=== PATIENT | female | born 1970 | race Caucasian/White ===

== ENCOUNTER → 2019-06-03 07:34 | Outpatient (CLI) | payer BC ==
[2016-04-26 12:39] VITALS: BMI 47.7
[~2019-06-03 07:34] MED LIST: MECLIZINE HCL25 MG PO; OMEPRAZOLE20 M1 PO; PERCOCET 5-3251 TAB PO; POTASSIUM99 M1 PO; THEREMS-M1 TAB PO; ZEBETA5 MG PO
== END | disposition home or self-care (01) ==
LOC: D.MRI 07:34
PROVIDERS: ATTEND Nurse Practitioner Family
DX: M25.561 Pain in right knee (principal)

== ENCOUNTER 2019-06-12 08:51 | Day surgery (SDC) | payer BC ==
[2019-06-11 11:17] LABS: HEMATOCRIT 39.8 % (36.0-48.0); HEMOGLOBIN 13.3 g/dL (12-16); MCH 31.4 pg (26.0-34.0); MCHC 33.4 g/dL (31.0-37.0); MCV 94.1 fL (80.0-100.0); MEAN PLATELET VOLUME 10.1 fL (7.4-10.4); RBC 4.23 10x6/uL (4.00-5.40); RDW 12.8 % (11.5-14.5); WBC 6.2 10x3/uL (4.8-10.8)
[~2019-06-12] VITALS: Ht 157.5 cm; Wt 118.2 kg
[~2019-06-12 08:51] MED LIST changes: -MECLIZINE HCL25 MG PO; -PERCOCET 5-3251 TAB PO
[2019-06-12 09:30] VITALS: BP 118/80; BMI 47.7
[2019-06-12] MEDS ORDERED: PERCOCET 5-3251 TAB PO (14:20)
--- NOTE | 2019-06-12 16:05 | OP ---
PATIENT NAME: CORDELL ANDREW MEDICAL RECORD: [id number] :70 LOCATION:[facility] ADMISSION DATE: SURGEON: HAIR COLVIN DO DATE OF OPERATION: 06/12/2019 PROCEDURE PERFORMED: Right knee arthroscopy, partial medial and partial lateral meniscectomies. PREOPERATIVE DIAGNOSES: Right knee medial and lateral meniscal tears and anterior cruciate ligament rupture. POSTOPERATIVE DIAGNOSES: Right knee medial and lateral meniscal tears and anterior cruciate ligament rupture. INDICATIONS: Ms. Andrew is a 48-year-old female who fell and twisted her leg and had an MRI, which showed ACL tear and medial and lateral meniscal tears. She is 5 feet 2 inches and 260 pounds. I informed her due to her BMI and the rigors of an ACL reconstruction, I do not feel that she would do well with an ACL reconstruction and that we would trim out the meniscal tears and then we would rehab the knee and she could wear a brace. She was okay with that and she is aware that she may need a total knee as she was told she had arthritis in her 20s, she says. I warned her of all those risks including infection, bleeding, damage to nerves and vessels, need for further surgery, chronic instability of the knee, and blood clots and even and she signed a consent. SURGEON: Hair Colvin DO DESCRIPTION OF PROCEDURE: The patient was taken to the operative suite, laid in supine position, given general anesthetic and given 3 grams of Ancef preoperatively. The right lower extremity was then prepped and draped in sterile fashion. Timeout was performed. Everyone was in agreeance with the correct side, site, patient and procedure. The patient had been sedated and LMA placed. The incision began over the lateral portal. The trocar was then entered into the knee and then the suprapatellar pouch was inspected. No loose body was seen in the lateral gutter or medial gutter. The medial portal was then established with an 18-guage spinal needle and 11-blade scalpel. I then probed the medial meniscus. She had a horizontal tear in the posterior meniscus, trimmed this out with a biter and a shaver back to stable point. The ACL was then seen in the notch, it was torn. The fibers that remained or stayed in place turned out the ones that were torn. The knee was in [id number]'ed and the lateral meniscus was seen to be torn also in the posterior horn. This was trimmed out with biter and shaver. 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 The suction was then turned on. Water was turned off and excess fluid was removed from the knee. Portal sites were closed with 4-0 Monocryl in an inverted interrupted fashion, covered with Steri-Strips, Adaptic, 4 x 4's and Tegaderms and then wrapped with cast padding and 6-inch Levi. She was awakened and taken to recovery in stable condition. BLOOD LOSS: Minimal. COMPLICATIONS: None. TRANSINT:[id number] Voice Confirmation ID: [id number] DOCUMENT ID: [id number] OPERATIVE REPORT [id number] CORDELL ANDREW,HAIR Peck DO at 1605 CC: [id number] DICTATION DATE: 06/12/191417 COSTUMED CHARACTER ENTERTAINER: 06/12/19 1459 [facility] [address] [place] [address]
--- NOTE | 2019-06-12 17:15 | NUR ---
CALL PLACED TO RECOVERY ROOM NURSE FAVIAN LOCKWOOD REGARDING PERSISTENT VERTIGO AND NAUSEA. FAVIAN STATES SHE WILL GO INTO OR TO DISCUSS THIS WITH ANESTHESIA AND DR COLVIN. DR COLVIN GIVES TELEPHONE ORDER FOR MECLIZINE 25 MG PO.
--- NOTE | 2019-06-12 18:05 | NUR ---
CALL PLACED TO DR COLVIN REGARDING PATIENT'S PERSISTENT VERTIGO AND NAUSEA. PATIENT UNABLE TO SIT UP ON SIDE OF BED WITHOUT VOMITING. DR COLVIN GIVES MULTIPLE ORDERS INCLUDING TO ADMIT PATIENT OVERNIGHT
--- NOTE | 2019-06-12 18:09 | NUR ---
CALL PLACED TO RECOVERY ROOM NURSE FAVIAN LOCKWOOD REGARDING PATIENT'S PERSISTENT VERTIGO, FAVIAN STATES SHE WILL GO INTO SURGERY TO DISCUSS THIS WITH ANESTHESIA AND DR COLVIN. DR COLVIN GIVES TELEPHONE ORDER FOR MECLIZINE 25 MG PO
--- NOTE | 2019-06-12 18:57 | NUR ---
REPORT CALLED TO [facility], RECEIVING NURSE, PATIENT TRANSPORTED BY BED TO ROOM 4780
--- NOTE | 2019-06-12 19:05 | NUR ---
PATIENT TRANSFERRED BY STRETCHER TO ROOM 2223 IN STABLE CONDITION
--- NOTE | 2019-06-12 19:20 | NUR ---
PATIENT TO FLOOR FROM ER. HAS BRACE AND RACHEL WRAP TO THE RIGHT KNEE. COMPLAINTS OF NAUSEA AND DIZZINESS. LOW STIMULI PROVIDED. PATIENT HAS LEFT FOREARM IV THAT IS PATENT AND INFUSING 1/2 NS @ 75. DENIES PAIN AT THIS TIME. EDUCATED ON USE OF CALL LIGHT AND INSTRUCTED PATIENT TO USE CALL LIGHT WHEN IN NEED OF ASSISTANCE. PATIENT VERBALIZES UNDERSTANDING. DENIES FURTHER NEEDS AT THIS TIME.
[2019-06-12 20:00] VITALS: BP 110/59
--- NOTE | 2019-06-12 20:30 | NUR ---
PROVIDED PATIENT WITH SALTINE CRACKERS AND SPRITE. PATIENT STATES THAT NAUSEA IS STARTING TO SUBSIDE. PATIENT BELIEVES IT MAY HAVE BEEN CAUSED FROM MEDICATIONS DURING SURGERY. DENIES FURTHER NEEDS AT THIS TIME. CPOC.
[2019-06-12 20:58] VITALS: BP 110/59; Ht 157.5 cm; Wt 118.2 kg
--- NOTE | 2019-06-12 22:29 | NUR ---
PATIENT AMBULATED TO BATHROOM WITH WALKER AND STAND BY ASSIST FROM THIS NURSE. BACK AND FORTH TO BATHROOM WITH MINIMAL DIZZINESS. STATES "I THINK IT IS GOING AWAY OR WHATEVER CAUSED THIS IS WEARING OFF." DENIES FURTHER ISSUES AT THIS TIME. RETURNED TO BED SAFELY WITH SIDE RAILS UP X2 AND CALL LIGHT IN REACH
[2019-06-13] VITALS: BP 108/64
[2019-06-13 04:00] VITALS: BP 107/51
--- NOTE | 2019-06-13 06:32 | NUR ---
PER ORDER SCD'S AND PLEXI PULSE ON. ICE PACK TO AFFECTED AREA.
[2019-06-13 06:54] LABS: BASOPHILS 0.1 % (0-2); EOSINOPHILS 0 % (0-7); HEMOGLOBIN 12.3 g/dL (12-16); IMMATURE GRANULOCYTES 0.2 % (0-5); LYMPHOCYTES 15.1 % (15-50); MCH 30.5 pg (26.0-34.0); MCHC 32.4 g/dL (31.0-37.0); MCV 94.3 fL (80.0-100.0); MEAN PLATELET VOLUME 10.6 fL (7.4-10.4); MONOCYTES 5.9 % (2-11); NEUTROPHILS 78.7 % (40-80); PLATELET COUNT 245 10x3/uL (130-400); RBC 4.03 10x6/uL (4.00-5.40); RDW 12.8 % (11.5-14.5)
[2019-06-13 07:06] LABS: WBC 9.1 10x3/uL (4.8-10.8)
[2019-06-13 07:15] LABS: ANION GAP 11.9 mmol/L (8-16); CALCIUM 8.9 mg/dL (8.5-10.1); CARBON DIOXIDE 28.3 mmol/L (21.0-32.0); MAGNESIUM - SERUM 1.7 mg/dL (1.8-2.4); PHOSPHOROUS 3.4 mg/dL (2.5-4.9); POTASSIUM - SERUM 4.2 mmol/L (3.5-5.1)
[2019-06-13] MEDS ORDERED: MECLIZINE HCL25 MG PO (08:22)
[2019-06-13 08:28] VITALS: BP 112/57
--- NOTE | 2019-06-13 08:30 | NUR ---
ALERT AND ORIENTED. LUNGS CLEAR BILATERALLY IN ALL HERNANDEZ. HEART SOUNDS S1 AND S2 HEARD IN ALL HERNANDEZ. BOWEL SOUNDS ACTIVE X 4. IMMOBILIZER AND RACHEL PRESENT TO RIGHT LEG. IV TO LFA PATENT WITHOUT REDNESS. DENIES NEEDS. WILL CONTINUE TO MONITOR.
--- NOTE | 2019-06-13 09:32 | NUR ---
DISCHARGE EDUCATION PROVIDED BOTH WRITTEN AND VERBAL. VERBALIZED UNDERSTANDING. DENIES FURTHER QUESTIONS. IV REMOVED FROM L[facility] WITH TIP INTACT. DRSG C/D/I AND IMMOBILZER AND DRSG LEFT IN PLACE FOR DISCHARGE PER DR COLVIN. REQUESTED AND GIVEN PRN PAIN MEDICATION PRIOR TO DISCHARGE. PATIENT DISCHARGED HOME WITH WITH ALL BELONGINGS.
== END 2019-06-13 10:00 | disposition home or self-care (01) ==
LOC: D.MS 08:51 → D.OPS 08:51 → D.PAN 10:30 → D.OPS 10:45 → D.PAN 10:45 → D.MS 19:18 → D.OPS 06-13 10:00
PROVIDERS: Anesthesiology; Emergency Medicine; ATTEND Orthopaedic Surgery
DX: S83.281A Other tear of lateral meniscus, current injury, right knee, initial encounter (principal); S83.241A Other tear of medial meniscus, current injury, right knee, initial encounter; X58.XXXA Exposure to other specified factors, initial encounter; S83.511A Sprain of anterior cruciate ligament of right knee, initial encounter